=== PATIENT | male | born 1990 | race Caucasian/White ===

== ENCOUNTER → 2023-02-23 14:39 | Outpatient (CLI) | payer OTHER, SELFPAY ==
--- NOTE | ~2023-02-23 | CT_ITS ---
EXAMINATION: CT sinus wo con DATE: 02/23/2023 14:58 INDICATION: Other specified disorders of the nose and paranasal sinuses TECHNIQUE: Computed tomography (CT) of the paranasal sinuses was performed without intravenous contra st. The dose-length product (DLP) was 285.32 mGy-cm. Iterative reconstruction was used. COMPARISON: None FINDINGS: There is normal development and pneumatization of the paranasal sinuses. There are 4 mm of leftward deviation of the nasal septum. The frontal, sphenoid, ethmoid, and maxillary sinuses are kaylynn ar. The bilateral ostiomeatal complexes are patent. Visualized soft tissues are unremarkable. IMPRESSION: 1. 4 mm of leftward deviation of the nasal septum. Reviewed, dictated and finalized at location L.
== END ==
DX: J34.89 Other specified disorders of nose and nasal sinuses (principal); J34.2 Deviated nasal septum
CPT/HCPCS: 70486